=== PATIENT | male | born 1960 | race Caucasian/White ===

== ENCOUNTER 2020-08-23 22:03 | Inpatient (IN) | payer MEDICAID ==
[~2020-08-23] VITALS: Ht 175.3 cm; Wt 85.9 kg
[2020-08-23 22:55] LABS: BASO % 0.2 % (0.0-2.0); EOS # 0.2 (0.0-0.7); EOS % 2.5 % (0-4.0); GRAN # 7.7 (1.4-6.5); GRAN % 82.3 % (42.2-75.2); LYMPH # 0.8 (1.2-3.4); LYMPH % 8.4 % (20.0-51.0); MEAN CELL VOLUME 91 fl (80.0-100.0); MEAN CORPUSCULAR HGB CONC 34 g/dl (33.0-37.0); MEAN PLATELET VOLUME 9.2 fl (7.4-10.4); MONO # 0.6 (0.1-0.6); PLATELET COUNT 195 K/mm3 (130-400); RED BLOOD COUNT 3.12 M/mm3 (4.20-5.60); REDCELL DISTRIBUTION WIDTH-CV 14.5 % (11.5-14.5)
[2020-08-23 22:56] LABS: HEMATOCRIT 28.3 % (42.0-52.0); HEMOGLOBIN 9.7 g/dl (13.5-18.0); MEAN CORPUSCULAR HEMOGLOBIN 31 pg (27.0-31.0)
[2020-08-23 23:03] LABS: INR 1.2 (0.8-3.0); PROTHROMBIN TIME 13.4 SECONDS (9.7-12.8)
[2020-08-23 23:06] LABS: BILIRUBIN,TOTAL 0.5 mg/dL (0.0-1.0); CALCIUM 7.6 mg/dL (8.4-10.2); POTASSIUM 3.9 mmol/L (3.4-5.0); TOTAL PROTEIN 5.2 gm/dL (6.4-8.2)
[2020-08-24] VITALS (15 sets, daily range): BP systolic 68–132; BP diastolic 24–59; PULSE 14–104; TEMP 97.3–98.8
[2020-08-24 01:31] LABS: HEMATOCRIT 27.3 % (42.0-52.0); HEMOGLOBIN 9.4 g/dl (13.5-18.0)
[2020-08-24] MEDS ORDERED: COZAAR100 MG PO (01:40)
[2020-08-24] MEDS ORDERED: HCTZ12.5TAB PO (01:41)
[2020-08-24] MEDS ORDERED: MASON NATURAL2000 IU PO (01:41)
[2020-08-24] MEDS ORDERED: VICTOZA6 MG/ML SQ (01:42)
[2020-08-24] MEDS ORDERED: VENTOLIN0.09 MG IH (01:42)
[2020-08-24] MEDS ORDERED: DESYREL 50MG50 MG PO (01:42)
[2020-08-24] MEDS ORDERED: NITROSTAT0.4 MG/TAB SL (01:43)
[2020-08-24] MEDS ORDERED: RT SPIRIVA18 MCG IH (01:43)
[2020-08-24] MEDS ORDERED: PLAVIX 75MG TAB75 MG PO (01:43)
[2020-08-24] MEDS ORDERED: HYDRALAZINE HC100 MG PO (01:44)
[2020-08-24] MEDS ORDERED: ISORDIL TITRADO30 MG PO (01:44)
[2020-08-24] MEDS ORDERED: SYNTHROID0.075 MG/T PO (01:44)
[2020-08-24] MEDS ORDERED: EPITOL PO (01:45)
[2020-08-24] MEDS ORDERED: PROZAC40 MG PO (01:45)
[2020-08-24] MEDS ORDERED: COREG 3.123.125 MG/T PO (01:45)
[2020-08-24] MEDS ORDERED: NEURONTIN600 MG/TAB PO (01:45)
[2020-08-24] MEDS ORDERED: NORVASC 10MG10 MG PO (01:46)
[2020-08-24] MEDS ORDERED: LIPITOR 80MG80 MG PO (01:46)
[2020-08-24] MEDS ORDERED: ASPIRIN 81M81 MG/TA2 PO (02:03)
[2020-08-24 06:27] LABS: BASO % 0.2 % (0.0-2.0); EOS # 0.1 (0.0-0.7); EOS % 1.1 % (0-4.0); GRAN # 7.7 (1.4-6.5); GRAN % 81.7 % (42.2-75.2); LYMPH # 0.9 (1.2-3.4); LYMPH % 9.5 % (20.0-51.0); MEAN CELL VOLUME 90 fl (80.0-100.0); MEAN CORPUSCULAR HGB CONC 34 g/dl (33.0-37.0); MEAN PLATELET VOLUME 9.8 fl (7.4-10.4); MONO # 0.7 (0.1-0.6); MONO % 6.9 % (1.7-9.3); PLATELET COUNT 178 K/mm3 (130-400); RED BLOOD COUNT 2.62 M/mm3 (4.20-5.60); REDCELL DISTRIBUTION WIDTH-CV 14.4 % (11.5-14.5)
[2020-08-24 06:32] LABS: ALBUMIN 2.8 gm/dL (3.5-5.0); BILIRUBIN,TOTAL 0.4 mg/dL (0.0-1.0); CALCIUM 7.4 mg/dL (8.4-10.2); CREATININE, serum 0.86 (0.66-1.25); POTASSIUM 3.7 mmol/L (3.4-5.0); TOTAL PROTEIN 4.8 gm/dL (6.4-8.2)
[2020-08-24 06:33] LABS: HEMATOCRIT 23.5 % (42.0-52.0); MEAN CORPUSCULAR HEMOGLOBIN 31 pg (27.0-31.0)
--- NOTE | 2020-08-24 07:21 | NUR ---
PT STILL C/O FEELING COLD. WARM BLANKET GIVEN. BS THIS AM 100. VOICES NO C/O PAIN, SOA. REPORT GIVEN TO DAY SHIFT NURSE.
--- NOTE | 2020-08-24 07:51 | NUR ---
PT UP TO RESTROOM. BM IS STILL ALL BLOOD, APPROXIMATELY 100ML. URINARY OUTPUT 300ML. PT DOES NOT COMPLAIN OF PAIN OR DISCOMFORT. NO FURTHER CONCERNS.
[2020-08-24 11:56] LABS: BASO % 0.3 % (0.0-2.0); EOS # 0.1 (0.0-0.7); GRAN # 6.9 (1.4-6.5); GRAN % 72.3 % (42.2-75.2); LYMPH # 1.6 (1.2-3.4); LYMPH % 16.7 % (20.0-51.0); MEAN CELL VOLUME 91 fl (80.0-100.0); MEAN CORPUSCULAR HGB CONC 34 g/dl (33.0-37.0); MONO # 0.8 (0.1-0.6); MONO % 8.7 % (1.7-9.3); PLATELET COUNT 193 K/mm3 (130-400); RED BLOOD COUNT 2.34 M/mm3 (4.20-5.60); REDCELL DISTRIBUTION WIDTH-CV 14.6 % (11.5-14.5)
[2020-08-24 12:00] LABS: HEMATOCRIT 21.2 % (42.0-52.0); HEMOGLOBIN 7.2 g/dl (13.5-18.0); MEAN CORPUSCULAR HEMOGLOBIN 31 pg (27.0-31.0)
[2020-08-24 12:17] LABS: CALCIUM 7.2 mg/dL (8.4-10.2); CREATININE, serum 0.91 (0.66-1.25); POTASSIUM 3.6 mmol/L (3.4-5.0)
--- NOTE | 2020-08-24 12:20 | NUR ---
SW met with patient to complete intake. Patient states that he is in town visiting from [place], [place]. In [place] he lives with is son Jason Marte [phone], but is visiting his daughter here locally [place] [phone]. patient provides that he does not utilize any DME, and is independent with ADL's. He provides that his PCP is Phil Cam [phone]. He provides that he would also like to provide his insurance information just in case case management needs it [facility] [phone]. Patient states that his Pharmacy is in [place] and he is able to afford medications. He also states that he plans to go back to his daughters local home up [place]. SW will continue to follow.
[2020-08-24 18:45] LABS: HEMATOCRIT 27.5 % (42.0-52.0); HEMOGLOBIN 9.5 g/dl (13.5-18.0)
[2020-08-24 19:36] LABS: HEMATOCRIT 28.5 % (42.0-52.0); HEMOGLOBIN 9.6 g/dl (13.5-18.0)
[2020-08-24 22:53] LABS: HEMATOCRIT 21.8 % (42.0-52.0); HEMOGLOBIN 7.4 g/dl (13.5-18.0)
--- NOTE | 2020-08-24 23:04 | NUR ---
Patient is resting quietly, VS stable, Hemoglobin 7.4- Call to [facility]- came up to see patient - see new orders, using bsc, 200ml of bright red bloody stool noted, updated on plan of care, will continue to monitor.
[2020-08-25] VITALS (15 sets, daily range): BP systolic 121–161; BP diastolic 45–67; PULSE 59–70; TEMP 98.1–98.7
[2020-08-25 05:38] LABS: BASO % 0.4 % (0.0-2.0); EOS # 0.1 (0.0-0.7); EOS % 1.2 % (0-4.0); GRAN # 6.1 (1.4-6.5); GRAN % 73.3 % (42.2-75.2); LYMPH # 1.2 (1.2-3.4); LYMPH % 13.9 % (20.0-51.0); MEAN CELL VOLUME 89 fl (80.0-100.0); MEAN CORPUSCULAR HGB CONC 35 g/dl (33.0-37.0); MEAN PLATELET VOLUME 9.9 fl (7.4-10.4); MONO # 0.9 (0.1-0.6); MONO % 10.6 % (1.7-9.3); PLATELET COUNT 152 K/mm3 (130-400); REDCELL DISTRIBUTION WIDTH-CV 14.6 % (11.5-14.5)
[2020-08-25 05:39] LABS: HEMATOCRIT 23.1 % (42.0-52.0); MEAN CORPUSCULAR HEMOGLOBIN 31 pg (27.0-31.0)
[2020-08-25 05:48] LABS: ALBUMIN 2.4 gm/dL (3.5-5.0); BILIRUBIN,TOTAL 0.5 mg/dL (0.0-1.0); CALCIUM 6.7 mg/dL (8.4-10.2); CREATININE, serum 0.72 (0.66-1.25); POTASSIUM 3.2 mmol/L (3.4-5.0); TOTAL PROTEIN 4.3 gm/dL (6.4-8.2)
--- NOTE | 2020-08-25 06:21 | NUR ---
Blood transfusion [facility] leuk reducted unit #[id number] o+ antibody screen - verfied at bedside with Marbiel LI transfusion was started after verification of patient, order, route, tubing, and patient teaching re: reactions completed, patient verbalizes understanding, consent verfied, VS done and charted- stable, patient montiored with nurse in room for 15 minutes at rate of 100ml per hour, no reactions noted, patient denies SHOB, itching, wheezing, or any s/s of reaction, rate increased to 150 @ 0646. patient continues to be stable at this time, report given to oncoming nurse Kathy LI. Vital signs as charted, remained stable throughout transfusion.
--- NOTE | 2020-08-25 10:14 | NUR ---
Blood transfusion stopped at 0840.
--- NOTE | 2020-08-25 10:32 | NUR ---
Patient alert and oriented, answers questions appropriately. See assessment. Abdomen soft, non tender, non distended. Bowel sounds active x4 quads. +Flatus. +Bowel movements. Colonoscopy prep started last night, has had one bloody stool this a.m. No c/o pain or discomfort.
--- NOTE | 2020-08-25 12:30 | NUR ---
Patient colonoscopy at 1215.
--- NOTE | 2020-08-25 13:06 | NUR ---
Patient returns from colonoscopy at 1300.
[2020-08-25 14:44] LABS: HEMATOCRIT 22.1 % (42.0-52.0); HEMOGLOBIN 7.6 g/dl (13.5-18.0)
--- NOTE | 2020-08-25 16:26 | NUR ---
Patient tranfered to [facility] via EMS at 1625. Report called to Naheed. Paperwork sent. Patient tranfered with IV in place to left hand. Daughter at bedside and updated.
== END 2020-08-25 16:25 | disposition short-term general hospital (02) | DRG 378 ==
LOC: COL.ER 22:03 → MEDICAL 23:32
PROVIDERS: Emergency Medicine; Family Medicine; Internal Medicine Gastroenterology; Student in an Organized Health Care Education/Training Program; ADMIT Hospitalist
PROC: 0DJD8ZZ Inspection of Lower Intestinal Tract, Via Natural or Artificial Opening Endoscopic (ICD-10-PCS; principal; 2020-08-25 12:30)
DX: K57.31 Diverticulosis of large intestine without perforation or abscess with bleeding (principal); D62 Acute posthemorrhagic anemia; E87.1 Hypo-osmolality and hyponatremia; I25.10 Atherosclerotic heart disease of native coronary artery without angina pectoris; I48.91 Unspecified atrial fibrillation; J44.9 Chronic obstructive pulmonary disease, unspecified; E03.9 Hypothyroidism, unspecified; I08.1 Rheumatic disorders of both mitral and tricuspid valves; E11.51 Type 2 diabetes mellitus with diabetic peripheral angiopathy without gangrene; I10 Essential (primary) hypertension; F32.9 Major depressive disorder, single episode, unspecified; D12.0 Benign neoplasm of cecum; E04.1 Nontoxic single thyroid nodule; S02.2XXA Fracture of nasal bones, initial encounter for closed fracture; S06.9X0A Unspecified intracranial injury without loss of consciousness, initial encounter; W18.30XA Fall on same level, unspecified, initial encounter; Y92.230 Patient room in hospital as the place of occurrence of the external cause; G47.00 Insomnia, unspecified; E78.5 Hyperlipidemia, unspecified; Z79.02 Long term (current) use of antithrombotics/antiplatelets; Z95.810 Presence of automatic (implantable) cardiac defibrillator; Z95.2 Presence of prosthetic heart valve; Z95.1 Presence of aortocoronary bypass graft; Z86.718 Personal history of other venous thrombosis and embolism; Z85.118 Personal history of other malignant neoplasm of bronchus and lung; Z86.73 Personal history of transient ischemic attack (TIA), and cerebral infarction without residual deficits; Z88.8 Allergy status to other drugs, medicaments and biological substances; Z87.891 Personal history of nicotine dependence
CPT/HCPCS: 99233-AI; 99239; G0378; J2704; J3480; J7030; P9016; Q9967